=== PATIENT | male | born 1980 | race Caucasian/White ===

== ENCOUNTER 2022-06-04 11:28 | Emergency (ER) | payer SELFPAY ==
[~2022-06-04] VITALS: Ht 185.4 cm; Wt 127.2 kg
[~2022-06-04 11:28] MED LIST: ERYT-124 PO
[2022-06-04 11:33] VITALS: BP 150/93
== END 2022-06-04 20:23 | disposition left against medical advice (07) ==
LOC: ER 11:29
DX: K08.89 Other specified disorders of teeth and supporting structures (principal); Z53.21 Procedure and treatment not carried out due to patient leaving prior to being seen by health care provider
CPT/HCPCS: 99281